=== PATIENT | female | born 1950 | race Hispanic/Latino ===

== ENCOUNTER 2017-12-06 09:17 | Outpatient (CLI) | payer BC | END 2017-12-06 09:18 | disposition home or self-care (01) | LOC: BICMAMMO 09:17 | PROVIDERS: ATTEND Family Medicine | DX: Z12.31 Encounter for screening mammogram for malignant neoplasm of breast (principal) | CPT/HCPCS: 77063; 77067 ==

== ENCOUNTER 2018-09-19 07:06 | Outpatient (CLI) | payer BC ==
--- NOTE | 2018-09-19 08:10 | ULT ---
ULTRASOUND ABDOMEN: HISTORY: Frequent urination. FINDINGS: The liver demonstrates increased echogenicity consistent with fatty infiltration. No focal mass or i ntrahepatic ductal dilatation is seen. The spleen measures 12 cm in length and is normal. No gallsto nino, gallbladder wall thickening, or pericholecystic fluid is seen. The common duct measures 3 mm in diameter. The visualized portions of the pancreas, aorta, and IVC are unremarkable. The kidneys paris ve a normal appearance. The prevoid urinary bladder volume is 61 cc with a postvoid residual 2 cc. No free fluid is seen. IMPRESSION: 1. Fatty liver. 2. No evidence of cholelithiasis. POS: [facility]
== END 2018-09-19 07:07 | disposition home or self-care (01) ==
LOC: BICULT 07:06
PROVIDERS: ATTEND Internal Medicine Nephrology
DX: R39.198 Other difficulties with micturition (principal); K76.0 Fatty (change of) liver, not elsewhere classified
CPT/HCPCS: 36415; 76700; 76856; 82306; 82310; 82340; 82565; 82570; 83970; 84100; 84156

== ENCOUNTER 2018-11-06 09:07 | Outpatient (CLI) | payer BC ==
--- NOTE | 2018-11-06 09:27 | RAD ---
CHEST 2 VIEWS: HISTORY: Hypercalcemia, chest pain for several weeks. FINDINGS: Heart size is within normal limits. The lungs are clear. No confluent pneumonia, overt edema, or pl eural effusion. IMPRESSION: No acute intrathoracic disease. Atherosclerosis of the aorta. POS: [facility]
== END 2018-11-06 09:08 | disposition home or self-care (01) ==
LOC: BICRAD 09:07
PROVIDERS: ATTEND Internal Medicine Nephrology
DX: E83.52 Hypercalcemia (principal); I70.0 Atherosclerosis of aorta
CPT/HCPCS: 36415; 71046; 82533; 84165

== ENCOUNTER 2019-01-09 13:27 | Outpatient (CLI) | payer BC ==
--- NOTE | 2019-01-09 13:50 | MMO ---
Bilateral MAMMO Bilat Screen [facility]. CLINICAL HISTORY: Patient is 68 years old and is seen for screening. The patient has no family history of breast cancer. The patient has no personal history of cancer. VIEWS: The views performed were: bilateral craniocaudal with tomosynthesis; bilateral mediolateral oblique with tomosynthesis; and right exaggerated craniocaudal. FILMS COMPARED: The present examination has been compared to prior imaging studies performed at [facility] on 02/17/2009, 12/16/2015 and 12/06/2017. MAMMOGRAM FINDINGS: The breasts are heterogeneously dense, which could obscure a lesion on mammography. There are stable benign appearing calcifications seen in both breasts. There are no suspicious masses, suspicious calcifications, or new areas of architectural distortion. IMPRESSION: THERE IS NO MAMMOGRAPHIC EVIDENCE OF MALIGNANCY. A ROUTINE FOLLOW-UP MAMMOGRAM IN 1 YEAR IS RECOMMENDED. THE RESULTS OF THIS EXAM WERE SENT TO THE PATIENT. ACR BI-RADS Category 2 - Benign finding MAMMOGRAPHY NOTE: 1. A negative mammogram report should not delay a biopsy if a dominant of clinically suspicious mass is present. 2. Approximately 10% to 15% of breast cancers are not detected by mammography. 3. Adenosis and dense breasts may obscure an underlying neoplasm. Reported by: ELO GOMES MD Electonically Signed: [id number]
== END 2019-01-09 13:28 | disposition home or self-care (01) ==
LOC: BICMAMMO 13:27
PROVIDERS: ATTEND Family Medicine
DX: Z12.31 Encounter for screening mammogram for malignant neoplasm of breast (principal)
CPT/HCPCS: 77063; 77067

== ENCOUNTER 2019-01-20 11:08 | Outpatient (CLI) | payer BC ==
--- NOTE | 2019-01-20 11:31 | RAD ---
EXAM: 2 views of the lumbosacral spine HISTORY: Low back pain COMPARISON: None FINDINGS: 2 views of the lumbosacral spine shows normal height and alignment of the vertebral bodies and intervertebral discs without fracture or subluxation. Moderate posterior facet arthrosis is seen in the lower lumbosacral spine. No significant osteophytes are seen. The sacroiliac joints are unremarkable. IMPRESSION: Degenerative changes of the lumbar spine without acute osseous abnormality
--- NOTE | 2019-01-20 11:32 | RAD ---
EXAM: 3 views of the thoracic spine HISTORY: Thoracic spine pain COMPARISON: None FINDINGS: 3 views of the thoracic spine shows normal height and alignment of the vertebral bodies wi thout fracture or subluxation. The intervertebral discs are narrowed throughout the thoracic spine with small surrounding osteophytes in the upper and mid thoracic spine. IMPRESSION: Degenerative changes of the thoracic spine as above
== END 2019-01-20 11:09 | disposition home or self-care (01) ==
LOC: BICRAD 11:08
PROVIDERS: ATTEND Internal Medicine Nephrology
DX: M47.814 Spondylosis without myelopathy or radiculopathy, thoracic region (principal); M47.816 Spondylosis without myelopathy or radiculopathy, lumbar region; I12.9 Hypertensive chronic kidney disease with stage 1 through stage 4 chronic kidney disease, or unspecified chronic kidney disease; E11.22 Type 2 diabetes mellitus with diabetic chronic kidney disease; N18.9 Chronic kidney disease, unspecified; I25.10 Atherosclerotic heart disease of native coronary artery without angina pectoris; E83.52 Hypercalcemia; E78.5 Hyperlipidemia, unspecified; N39.0 Urinary tract infection, site not specified
CPT/HCPCS: 72072; 72100

== ENCOUNTER 2020-05-03 07:49 | Outpatient (CLI) | payer BC ==
--- NOTE | 2020-05-03 08:40 | MMO ---
Bilateral MAMMO Bilat Screen [facility]. CLINICAL HISTORY: Patient is 69 years old and is seen for screening. The patient has no family history of breast cancer. The patient has no personal history of cancer. VIEWS: The views performed were: bilateral craniocaudal with tomosynthesis and bilateral mediolateral oblique with tomosynthesis. FILMS COMPARED: The present examination has been compared to prior imaging studies performed at [facility] on 02/17/2009, 12/16/2015, 12/06/2017 and 01/09/2019. This study has been interpreted with the assistance of computer-aided detection. MAMMOGRAM FINDINGS: The breasts are heterogeneously dense, which could obscure a lesion on mammography. There is a stable asymmetry seen in the upper-outer region of the right breast. There are no suspicious masses, suspicious calcifications, or new areas of architectural distortion. IMPRESSION: THERE IS NO MAMMOGRAPHIC EVIDENCE OF MALIGNANCY. A ROUTINE FOLLOW-UP MAMMOGRAM IN 1 YEAR IS RECOMMENDED. THE RESULTS OF THIS EXAM WERE SENT TO THE PATIENT. ACR BI-RADS Category 2 - Benign finding MAMMOGRAPHY NOTE: 1. A negative mammogram report should not delay a biopsy if a dominant of clinically suspicious mass is present. 2. Approximately 10% to 15% of breast cancers are not detected by mammography. 3. Adenosis and dense breasts may obscure an underlying neoplasm. Reported by: CURT MUNGUIA MD Electonically Signed: [id number]
== END 2020-05-03 07:50 | disposition home or self-care (01) ==
LOC: BICMAMMO 07:49
PROVIDERS: ATTEND Family Medicine
DX: Z12.31 Encounter for screening mammogram for malignant neoplasm of breast (principal)
CPT/HCPCS: 77063; 77067

== ENCOUNTER 2021-05-26 09:08 | Outpatient (CLI) | payer BC | END 2021-05-26 09:09 | disposition home or self-care (01) | LOC: BICMAMMO 09:08 | PROVIDERS: ATTEND Family Medicine | DX: Z12.31 Encounter for screening mammogram for malignant neoplasm of breast (principal) | CPT/HCPCS: 77063; 77067 ==

== ENCOUNTER 2022-06-01 08:50 | Outpatient (CLI) | payer OTHER | END 2022-06-01 08:51 | disposition home or self-care (01) | LOC: BICMAMMO 08:50 | PROVIDERS: ATTEND Family Medicine | DX: Z12.31 Encounter for screening mammogram for malignant neoplasm of breast (principal) | CPT/HCPCS: 77063; 77067 ==

== ENCOUNTER 2022-08-21 12:20 | Outpatient (CLI) | payer OTHER | END 2022-08-21 12:21 | disposition home or self-care (01) | LOC: ULT 12:20 | PROVIDERS: ATTEND Internal Medicine Nephrology | DX: N18.2 Chronic kidney disease, stage 2 (mild) (principal) | CPT/HCPCS: 76770 ==

== ENCOUNTER 2025-03-17 07:43 | Outpatient (CLI) | payer OTHER | END 2025-03-17 07:44 | disposition home or self-care (01) | LOC: BICMAMMO 07:43 | PROVIDERS: ATTEND Family Medicine | DX: Z12.31 Encounter for screening mammogram for malignant neoplasm of breast (principal) | CPT/HCPCS: 77063; 77067 ==